=== PATIENT | female | born 1960 | race Two or more races ===

== ENCOUNTER 2016-11-23 11:32 | Inpatient (IN) | payer MEDICAID ==
[~2016-11-23] VITALS: Ht 144.8 cm; Wt 84.1 kg
[2016-11-23] MEDS ORDERED: ASPirin 81 mg TAB PO ONE (12:00)
[2016-11-23 12:46] LABS: Basophils # (auto) 0.1 uL; Basophils % (auto) 0.9 % (0.0-2.0); Eosinophils # (auto) 0.1 uL; Eosinophils % (auto) 1.8 % (0.0-7.0); Hematocrit 41.7 % (36.0-46.0); Hemoglobin 14.3 g/dL (12.2-16.2); Lymphocytes # (auto) 2.8 uL; Lymphocytes % (auto) 34.2 % (10.0-50.0); Mean Corpuscular Hemoglobin 29.6 pg (28.0-32.0); Mean Corpuscular Hgb Conc. 34.3 g/dL (32.0-36.0); Mean Corpuscular Volume 86.3 fL (80.0-100.0); Mean Platelet Volume 8.8 fL (6.9-10.8); Monocytes # (auto) 0.5 uL; Monocytes % (auto) 6.6 % (0.0-12.0); Neutrophils # (auto) 4.6 uL; Neutrophils % (auto) 56.5 % (37.0-80.0); Platelet Count (auto) 213 10^3/uL (140-450); Red Cell Distribution Width 13.2 % (11.8-14.3); White Blood Cell 8.1 10^3/uL (4.4-10.8)
[2016-11-23 13:01] LABS: INR 0.95 (0.9-1.15); Partial Thromboplastin Time 25.9 sec (22.64-33.71); Prothrombin Time 10.4 sec (9.37-12.3)
[2016-11-23 13:24] LABS: Albumin 3.7 g/dL (3.4-5.0); Alkaline Phosphatase 91 U/L (45-117); Anion Gap 8 (5-15); Aspartate Aminotransferase 17 U/L (15-37); BUN/Creatinine Ratio 22.2; Bilirubin, Total 0.4 mg/dL (0.2-1.0); Blood Urea Nitrogen 16 mg/dL (7-18); Calcium 9.1 mg/dL (8.5-10.1); Carbon Dioxide 27 mmol/L (21-32); Chloride 103 mmol/L (98-107); GFR African American 108 mL/min; GFR Non-African American 89 mL/min; Glucose 219 mg/dL (74-106); Potassium 3.9 mmol/L (3.5-5.1); Sodium 138 mmol/L (136-145); Total Protein 7.5 g/dL (6.4-8.2)
[2016-11-23] MEDS ORDERED: ONDANSETRON HCL 4 MG/2 ML VIAL IV ONE ×2 (13:30→17:30)
[2016-11-23] MEDS ORDERED: MORPHINE SULF INJ 2 MG/ML SYRINGE 1ML IV ONE ×2 (13:30→17:30)
[2016-11-23 13:35] LABS: B-Type Natriuretic Peptide 3.19 pg/mL (0-100); Temperature: 23.7 C (20.0-25.0)
[2016-11-23] MEDS ORDERED: NITROGLYCERIN 0.4 MG SL TAB SL PRN ×2 (18:15)
[2016-11-23] MEDS ORDERED: ZOLPIDEM TARTRATE 5 MG TAB PO PRN (18:15)
[2016-11-23] MEDS ORDERED: ONDANSETRON HCL 4 MG/2 ML VIAL IV PRN (18:15)
[2016-11-23] MEDS ORDERED: LORazepam 0.5 MG TAB PO PRN (18:15)
[2016-11-23] MEDS ORDERED: MORPHINE SULF INJ 2 MG/ML SYRINGE 1ML IV PRN ×2 (18:15)
[2016-11-23] MEDS ORDERED: DEXTROSE (50%) 50ML SYRG IV PRN (19:00)
[2016-11-23] MEDS: InsuLIN REG 1unit/0.01ml Soln (100units/ml) SC SCH (22:00)
[2016-11-23] MEDS: SODIUM CHLOR 0.9% PF (SALINE LOCK) 10ML VIAL IV SCH (22:14)
[2016-11-23] MEDS: ATORVASTATIN 20 MG TAB PO SCH (22:15)
[2016-11-23] MEDS: CARVEDILOL 3.125 MG TAB PO SCH (22:15)
[2016-11-23] MEDS: ENALAPRIL MALEATE 2.5 MG TAB PO SCH (22:15)
[2016-11-23] MEDS: ACCU-CHEK COMFORT CURVE STRIP VI SCH (22:16)
[2016-11-23 22:45] VITALS: BP 111/68
[2016-11-24 04:52] VITALS: BP 101/54
[2016-11-24] MEDS: InsuLIN REG 1unit/0.01ml Soln (100units/ml) SC SCH ×4 (04:57→22:00)
[2016-11-24] MEDS: SODIUM CHLOR 0.9% PF (SALINE LOCK) 10ML VIAL IV SCH ×3 (04:57→22:00)
[2016-11-24] MEDS: ACCU-CHEK COMFORT CURVE STRIP VI SCH ×4 (04:58→23:02)
[2016-11-24] MEDS: ACETAMINOPHEN 325 MG TAB PO PRN (04:58)
[2016-11-24 08:34] LABS: Basophils # (auto) 0.1 uL; Basophils % (auto) 0.6 % (0.0-2.0); Eosinophils # (auto) 0.2 uL; Eosinophils % (auto) 2.2 % (0.0-7.0); Hematocrit 39.8 % (36.0-46.0); Hemoglobin 13.7 g/dL (12.2-16.2); Lymphocytes # (auto) 3.6 uL; Lymphocytes % (auto) 42.2 % (10.0-50.0); Mean Corpuscular Hemoglobin 29.7 pg (28.0-32.0); Mean Corpuscular Hgb Conc. 34.5 g/dL (32.0-36.0); Mean Platelet Volume 8.9 fL (6.9-10.8); Monocytes # (auto) 0.5 uL; Monocytes % (auto) 5.7 % (0.0-12.0); Neutrophils # (auto) 4.3 uL; Neutrophils % (auto) 49.3 % (37.0-80.0); Nucleated Red Blood Cells % 0.3 %; Platelet Count (auto) 205 10^3/uL (140-450); Red Cell Distribution Width 13.3 % (11.8-14.3); White Blood Cell 8.6 10^3/uL (4.4-10.8)
[2016-11-24 08:43] VITALS: BP 104/59
[2016-11-24 08:52] LABS: Albumin 3.6 g/dL (3.4-5.0); BUN/Creatinine Ratio 24.7; Bilirubin, Total 0.5 mg/dL (0.2-1.0); Calcium 8.7 mg/dL (8.5-10.1); Magnesium 2.2 mg/dL (1.6-2.6); Potassium 3.9 mmol/L (3.5-5.1); Total Protein 7.2 g/dL (6.4-8.2)
[2016-11-24] MEDS: ENALAPRIL MALEATE 2.5 MG TAB PO SCH ×2 (10:00→22:00)
[2016-11-24] MEDS: CARVEDILOL 3.125 MG TAB PO SCH ×2 (10:00→22:00)
[2016-11-24] MEDS: DOCUSATE SOD 100 MG CAP PO SCH (11:48)
[2016-11-24] MEDS: CLOPIDOGREL BISULFATE 75 MG TAB PO SCH (11:49)
[2016-11-24] MEDS: ASPirin 81 mg TAB PO SCH (11:49)
[2016-11-24 12:30] VITALS: BP 106/59
[2016-11-24 16:51] VITALS: BP 95/68
[2016-11-24 21:58] VITALS: BP 124/66
[2016-11-24] MEDS: ATORVASTATIN 20 MG TAB PO SCH (23:03)
[2016-11-25 05:15] VITALS: BP 125/73
[2016-11-25] MEDS: InsuLIN REG 1unit/0.01ml Soln (100units/ml) SC SCH ×4 (05:28→21:36)
[2016-11-25] MEDS: ACCU-CHEK COMFORT CURVE STRIP VI SCH ×4 (05:28→21:36)
[2016-11-25] MEDS: SODIUM CHLOR 0.9% PF (SALINE LOCK) 10ML VIAL IV SCH ×3 (05:28→21:29)
[2016-11-25 09:00] VITALS: BP 136/77
[2016-11-25] MEDS ORDERED: ADENOSINE 75 MG in GIVE UN-DILUTED 0 ML IV ONE (09:00)
[2016-11-25] MEDS: CARVEDILOL 3.125 MG TAB PO SCH ×2 (12:55→21:43)
[2016-11-25] MEDS: DOCUSATE SOD 100 MG CAP PO SCH (12:55)
[2016-11-25] MEDS: CLOPIDOGREL BISULFATE 75 MG TAB PO SCH (12:55)
[2016-11-25] MEDS: ENALAPRIL MALEATE 2.5 MG TAB PO SCH ×2 (12:55→21:43)
[2016-11-25] MEDS: ASPirin 81 mg TAB PO SCH (12:55)
[2016-11-25 13:00] VITALS: BP 135/89
[2016-11-25 14:54] LABS: Urine Bilirubin Negative (Negative); Urine Blood Negative /uL (Negative); Urine Color Yellow (Yellow); Urine Glucose Normal (Normal); Urine Ketone Negative (Negative); Urine Nitrite Negative (Negative); Urine RBC 3 /hpf (0 - 4); Urine Squamous Epithelial Cell FEW /hpf (<5); Urine Urobilinogen Normal (Negative); Urine pH 7.5 (5.0-8.0)
[2016-11-25] MEDS: ACETAMINOPHEN 325 MG TAB PO PRN ×3 (16:19→23:57)
[2016-11-25 17:00] VITALS: BP 91/54
[2016-11-25 17:30] VITALS: BP 106/73
[2016-11-25] MEDS: ATORVASTATIN 20 MG TAB PO SCH (21:30)
[2016-11-26 05:03] VITALS: BP 125/61
[2016-11-26] MEDS: InsuLIN REG 1unit/0.01ml Soln (100units/ml) SC SCH ×3 (05:15→17:00)
[2016-11-26] MEDS: SODIUM CHLOR 0.9% PF (SALINE LOCK) 10ML VIAL IV SCH ×2 (05:15→14:00)
[2016-11-26] MEDS: ACCU-CHEK COMFORT CURVE STRIP VI SCH ×3 (05:15→17:00)
[2016-11-26 08:00] VITALS: BP 136/70
[2016-11-26 09:00] VITALS: BP 136/70
[2016-11-26] MEDS: ASPirin 81 mg TAB PO SCH (10:24)
[2016-11-26] MEDS: ENALAPRIL MALEATE 2.5 MG TAB PO SCH (10:24)
[2016-11-26] MEDS: DOCUSATE SOD 100 MG CAP PO SCH (10:24)
[2016-11-26] MEDS: CLOPIDOGREL BISULFATE 75 MG TAB PO SCH (10:24)
[2016-11-26] MEDS: CARVEDILOL 3.125 MG TAB PO SCH (10:25)
[2016-11-26] MEDS: ACETAMINOPHEN 325 MG TAB PO PRN (10:31)
[2016-11-26 13:13] VITALS: BP 123/74
[2016-11-26 17:00] VITALS: BP 103/47
[2016-11-26 18:43] VITALS: BP 123/74
== END 2016-11-26 19:40 | disposition home or self-care (01) | DRG 198 ==
LOC: ER 11:32 → TELE 11:33 → TELE-WESTW 21:08
PROVIDERS: ADMIT Internal Medicine; ATTEND Internal Medicine
DX: I20.0 Unstable angina (principal); E11.21 Type 2 diabetes mellitus with diabetic nephropathy; E11.65 Type 2 diabetes mellitus with hyperglycemia; I12.9 Hypertensive chronic kidney disease with stage 1 through stage 4 chronic kidney disease, or unspecified chronic kidney disease; E11.22 Type 2 diabetes mellitus with diabetic chronic kidney disease; N18.2 Chronic kidney disease, stage 2 (mild); E66.9 Obesity, unspecified; Z88.8 Allergy status to other drugs, medicaments and biological substances; Z86.73 Personal history of transient ischemic attack (TIA), and cerebral infarction without residual deficits; Z82.49 Family history of ischemic heart disease and other diseases of the circulatory system; Z82.3 Family history of stroke; Z68.41 Body mass index [BMI] 40.0-44.9, adult
CPT/HCPCS: 36415; 71010; 80053; 80061; 81001; 82962; 83036; 83735; 83880; 84443; 84484; 85025; 85379; 85610; 85730; 87086; 93005; 93017; 93306; 94761; 96374; 96375; 96376; J0153; J2405